=== PATIENT | male | born 1975 | race Hispanic/Latino ===

== ENCOUNTER 2017-04-09 00:08 | Emergency (ER) | payer OTHER ==
[~2017-04-09] VITALS: Ht 175.3 cm; Wt 136.1 kg
[~2017-04-09 00:08] MED LIST: MEDROL4 M2 PO; PROAIR HFA8.5 GM INH
--- NOTE | 2017-04-09 00:43 | ED GI/GU/ABDOMINAL COMPLAINT ---
History of Present Illness General Chief Complaint: Male Genitourinary Problems Stated Complaint: PENIS PAIN Source: patient Exam Limitations: no limitations Vital Signs & Intake/Output Vital Signs & Intake/Output Vital Signs Date Time Temp Pulse Resp B/P B/P Pulse O2 O2 Flow FiO2 Mean Ox Delivery Rate 04/09 0044 98.0 80 20 140/70 98 Room Air Allergies Coded Allergies: No Known Allergies (04/09/17) Reconcile Medications Nystatin 100,000 UNIT/GRAM OINT...G. 1 MADELYN TOP TID balinitis apply to affected area(s) Oxycodone HCl/Acetaminophen (Percocet 5-325 MG Tablet) 5 MG-325 MG TABLET 1 TAB PO BID pain Triage Note: TRIAGE: PATIENT TO ER FROM HOME REPORTING 06/29 PAIN TO PENIS, REPORTS "MY DOCTOR TOLD ME THAT I SHOULD HAVE BEEN CIRCUMSIZED BECAUSE I'M DIABETIC AND THAT IN ORDER TO AVOID INFECTIONS DOWN THERE I SHOULD BE DRINKING ALOT OF WATER BUT I'M NOT SO IT'S HURTING." ONSET OF PAIN EARLIER TODAY. Triage Nurses Notes Reviewed? yes Onset: Abrupt Duration: week(s): (3), constant, continues in ED, getting worse Timing: single episode today Quality/Severity: burning, moderate Severity Numbers: 8 Location: urethral Radiation: no radiation Activities at Onset: sexual activity Prior Abdominal Problems: none Past Sexual History: Unobtainable at this time Sexually Active: Yes Last Time You Were Sexual: less than 2 months ago Sexual Orientation: Heterosexual Use of Protection: No No Modifying Factors: none Modifying Factors: Worsens With: urinating. HPI: 41-year-old male with a history of diabetes presents complaining of pain swelling and discharge from his penis. Patient reports that over the past 3 weeks he has noticed that his foreskin has become swollen, red, dry and cracked. He reports that despite his symptoms he tried to had sex have anyway and several days later developed penile discharge. He is sexually active with females and does not use protection. He denies any previous history of STDs. He denies frequency or urgency, abdominal pain, dysuria, back pain or fever. He does see a urologist because he wants to get circumcised. (GIANLUCA GUZMAN PA-C) Past History Travel History Traveled to [place] past 21 day No Medical History Any Pertinent Medical History? see below for history Neurological: NONE EENT: NONE Cardiovascular: NONE Respiratory: NONE Gastrointestinal: NONE Hepatic: NONE Renal: NONE Musculoskeletal: NONE Psychiatric: anxiety Endocrine: diabetes Blood Disorders: NONE Cancer(s): NONE Surgical History Surgical History: none Psychosocial History What is your primary language Wolof Tobacco Use: Never used Family History Hx Contributory? Yes (GIANLUCA GUZMAN PA-C) Review of Systems Review of Systems Constitutional: Reports: no symptoms. EENTM: Reports: no symptoms. Respiratory: Reports: no symptoms. Cardiovascular: Reports: no symptoms. GI: Reports: no symptoms. Genitourinary: Reports: see HPI, discharge, pain (PENILE). Musculoskeletal: Reports: no symptoms. Skin: Reports: no symptoms. Neurological/Psychological: Reports: no symptoms. Hematologic/Endocrine: Reports: no symptoms. Immunologic/Allergic: Reports: no symptoms. All Other Systems: Reviewed and Negative (GIANLUCA GUZMAN PA-C) Physical Exam Physical Exam General Appearance: well developed/nourished, alert, awake, anxious, mild distress Head: atraumatic, normal appearance Eyes: Bilateral: normal appearance, PERRL, EOMI, normal inspection. Ears, Nose, Throat, Mouth: hearing grossly normal, moist mucous membrane Neck: normal inspection, supple, full range of motion Respiratory: normal breath sounds, chest non-tender, no respiratory distress, lungs clear Cardiovascular: regular rate/rhythm, normal peripheral pulses Peripheral Pulses: 2+ dorsalis pedis (R), 2+ dorsalis pedis (L) Gastrointestinal: normal bowel sounds, soft, non-tender, no organomegaly Male Genitals: urethral discharge, THERE IS SWELLING AND ERYTHEMA OF THE FORESKIN. tHERE IS WHITE THICK DISCHARGE PRESENT FROM THE URETHRA AND GLANS PENIS. IT IS DIFFICULT TO RETRACT THE FORESKIN BUT IT IS ABLE TO BE RETRACTED AT THIS TIME. Back: normal inspection, normal range of motion Extremities: normal range of motion Neurologic/Psych: no motor/sensory deficits, awake, alert, oriented x 3, normal gait, normal mood/affect Skin: intact, normal color, warm/dry Core Measures ACS in differential dx? No Severe Sepsis Present: No Septic Shock Present: No (GIANLUCA GUZMAN PA-C) Progress Differential Diagnosis: prostatitis, urethritis, UTI/pyelo, BALANITIS, std, PARAPHIMOSIS, PHIMOSIS Plan of Care: Orders Procedure Date/time Status GENITAL CULTURE 04/09 49 Active Microbiology 04/09 0110 GENITAL: Genital Culture - RECD Patient will be treated with ceftriaxone and Zithromax for empiric Coverage of gonorrhea and chlamydia. He will also be treated with nystatin ointment for treatment of FUNGAL balanitis. Genital culture obtained will follow up on results. Of agitation and not have sex for at least one week and follow-up with his urologist as soon as possible. Return to the emergency department with worsening swelling, pain, discharge, abdominal pain fever or back pain. Discussed treatment plan with patient and he agrees the plan. (THOMAS MCKEON,GIANLUCA) Initial ED EKG: none (GIANLUCA GUZMAN PA-C) Departure Departure Disposition: HOME OR SELF CARE Condition: Stable Clinical Impression Primary Impression: Balanitis Secondary Impressions: Urethritis Referrals: PATIENT HAS NO PRIMARY CARE DR (PCP/Family) Additional Instructions: Apply nystatin ointment as directed. make a Follow up appointment with your urologist this week. Do not have sex for at least one week. Use Tylenol or ibuprofen as needed for pain. Vicodin as needed for severe pain only this may cause drowsiness. Return to ED for with any concerns. Please go over all results of today's visit with your primary care doctor. Contact your primary care doctor to let them know you were here in the emergency room. There may be nonspecific findings which may not be related to your visit today here in the emergency room but may require further evaluation and chronic monitoring by your primary care doctor. If you had a laceration today the chance of foreign body always remains. You should follow-up with your primary care doctor for recheck in 3-5 days for a wound check. If you had an x-ray done there is a chance that a fracture could have been missed on initial read and you should follow-up with your primary care doctor for repeat x-rays if symptoms persist. If your blood pressure was elevated here in the emergency room please have rechecked by her primary care doctor within the next 48 hours by your primary care doctor. If you were prescribed a narcotic here in the emergency room or any type of controlled substances you're not allowed to drive while taking this medication or operate any type of heavy machinery. Narcotics can make you feel lightheaded dizziness nausea and can cause constipation. You may need to picking crew supervisor a stool softener. Thank you for choosing [facility] emergency room. Please return to the emergency room immediately if you have any other concerns worsening of symptoms. Departure Forms: Customer Survey General Discharge Information Prescriptions: Current Visit Scripts Nystatin 1 MADELYN TOP TID #15 GM apply to affected area(s) Oxycodone HCl/Acetaminophen (Percocet 5-325 MG Tablet) 1 TAB PO BID #6 TAB (GIANLUCA GUZMAN PA-C) PA/PRESS TENDER Co-Sign Statement Statement: ED Attending supervision documentation- [] I saw and evaluated the patient. I have also reviewed all the pertinent lab results and diagnostic results. I agree with the findings and the plan of care as documented in the PA's/PRESS TENDER's documentation. [X] I have reviewed the ED Record and agree with the PA's/PRESS TENDER's documentation. [] Additions or exceptions (if any) to the PAs/PRESS TENDER's note and plan are summarized below: [] (MALCOLM JAMESON,ANAIS Flowers)
[2017-04-09 00:44] VITALS: BP 140/70
[2017-04-09] MEDS ORDERED: NYSTATIN15 GM TOP (00:59)
[2017-04-09] MEDS ORDERED: PERCOCET 5-3251 EACH PO (00:59)
== END 2017-04-09 01:23 ==
LOC: ERH 00:08
DX: N48.1 Balanitis (principal); N34.2 Other urethritis
CPT/HCPCS: 87070; 96372; J0456; J0696